=== PATIENT | female | born 1970 | race Caucasian/White ===

== ENCOUNTER 2021-01-17 16:30 | Emergency (ER) | payer OTHER, MEDICARE ==
[2021-01-17 18:56] LABS: #Eosinphils 0.1 10x3/uL (0.0-0.5); #Monocytes 0.6 10x3/uL (0.0-1.1); #Neutrophils 4.1 10x3/uL (1.5-8.4); %Basophils 0.3 % (0.0-2.0); %Eosinophils 1.4 % (0.0-6.0); %Lymphocytes 48.8 % (18.0-47.0); %Monocytes 6.6 % (0.0-10.0); %Neutrophils 42.7 % (40.0-75.0); Hemoglobin 13.4 g/dL (12.0-15.5); Mean Corpuscular HGB CONC 35.1 g/dL (32.0-36.0); Mean Corpuscular Hemoglobin 32.3 pg (27.0-33.0); Mean Platelet Volume 10.1 fl (7.4-10.4); Platelet Count 257 10x3/uL (150-450); RBC Distribution Width 11.4 % (11.5-14.5); Red Blood Cell (RBC) Count 4.15 10x6/uL (3.90-5.03); White Blood Cell (WBC) Count 9.6 10x3/uL (3.5-10.5)
[2021-01-17] MEDS ORDERED: Acetaminophen 500 MG TAB ONE (19:05)
[2021-01-17 19:12] LABS: ALT (SGPT) 55 U/L (8-55); AST (SGOT) 39 U/L (5-34); Albumin 4.6 g/dL (3.5-5.0); Alkaline Phosphatase 61 U/L (40-110); Anion Gap 14 mmol/L (10-20); BUN (Urea Nitrogen) 16 mg/dL (7.0-18.7); Bilirubin, Total 0.3 mg/dL (0.2-1.2); Calc. Creatinine Clearance 0 mL/min (70-130); Calcium 9.9 mg/dL (7.8-10.44); Carbon Dioxide 26 mmol/L (22-29); Chloride 103 mmol/L (98-107); Globulin 3.9 g/dL (2.4-3.5); Glucose 102 mg/dL (70-105); Potassium 3.5 mmol/L (3.5-5.1); Protein, Total 8.5 g/dL (6.0-8.3); Sodium 139 mmol/L (136-145)
[2021-01-17] MEDS ORDERED: Meclizine HCl 25 MG TAB ONE (20:12)
== END 2021-01-17 20:22 | disposition home or self-care (01) ==
LOC: CSHERS 16:30
DX: S70.02XA Contusion of left hip, initial encounter (principal); F17.210 Nicotine dependence, cigarettes, uncomplicated; I50.9 Heart failure, unspecified; Z79.899 Other long term (current) drug therapy; W01.0XXA Fall on same level from slipping, tripping and stumbling without subsequent striking against object, initial encounter
CPT/HCPCS: 70450; 71045; 72125; 72131; 80053; 85025; 93005